=== PATIENT | female | born 1955 | race Caucasian/White ===

== ENCOUNTER 2020-09-09 17:48 | Inpatient (IN) | payer MEDICARE, BC ==
[2020-09-09 18:20] LABS: #Basophils 0.1 thou/uL (0.0-0.2); #Eosinphils 0.1 thou/uL (0.0-0.7); #Lymphocytes 1.7 thou/uL (1.20-3.40); #Monocytes 0.5 thou/uL (0.11-0.59); #Neutrophils 3.6 thou/uL (1.40-6.50); %Eosinophils 2.2 % (0.0-10.0); %Monocytes 8.3 % (0.0-10.0); %Neutrophils 60.6 % (42.0-75.0); Hemoglobin 14.3 g/dL (12.0-16.0); Mean Corpuscular HGB CONC 33.7 g/dL (32.0-36.0); Mean Corpuscular Hemoglobin 33.2 pg (27.0-31.0); Mean Corpuscular Volume 98.6 fL (78.0-98.0); Mean Platelet Volume 8.9 fL (7.4-10.4); Platelet Count 161 thou/uL (130-400); Red Blood Cell (RBC) Count 4.31 mill/uL (4.20-5.40); White Blood Cell (WBC) Count 5.9 thou/uL (4.8-10.8)
[2020-09-09 18:45] LABS: ALT (SGPT) 19 U/L (8-55); AST (SGOT) 30 U/L (5-34); Albumin 4.2 g/dL (3.4-4.8); Alkaline Phosphatase 53 U/L (40-110); Anion Gap 14 mmol/L (10-20); BUN (Urea Nitrogen) 18 mg/dL (9.8-20.1); Bilirubin, Total 0.5 mg/dL (0.2-1.2); Calc. Creatinine Clearance 0 mL/min (70-130); Calcium 9.7 mg/dL (7.8-10.44); Carbon Dioxide 26 mmol/L (23-31); Chloride 101 mmol/L (98-107); Globulin 3.2 g/dL (2.4-3.5); Glucose 112 mg/dL (80-115); Potassium 3.7 mmol/L (3.5-5.1); Protein, Total 7.4 g/dL (5.8-8.1); Sodium 137 mmol/L (136-145)
[2020-09-09] MEDS ORDERED: Aspirin Chewable 81 MG TAB ONE (19:19)
[2020-09-09] MEDS ORDERED: Nitroglycerin 2% Ointment 1 INCH/1 GM Packet ONE (19:19)
[2020-09-09 19:31] LABS: CK (CPK) 221 U/L (29-168); Lipase 32 U/L (8-78)
[2020-09-09] MEDS ORDERED: Senokot S 8.6-50 MG TAB PO PRN (20:15)
[2020-09-09] MEDS ORDERED: Ondansetron PF 4 MG/2 ML Vial IVP PRN (20:15)
[2020-09-09] MEDS ORDERED: Bisacodyl 5 MG TAB PO PRN (20:15)
[2020-09-09] MEDS ORDERED: Ondansetron ODT 4 MG TAB PO PRN (20:15)
[2020-09-09] MEDS ORDERED: Nitroglycerin 0.4 MG TAB (25 Tab Bottle) SL PRN (20:15)
[2020-09-09] MEDS ORDERED: hydrALAZINE 20 MG/ML VIAL SLOW IVP PRN (20:58)
[2020-09-09] MEDS ORDERED: Lisinopril 5 MG TAB PO SCH (21:00)
[2020-09-09] MEDS ORDERED: Calcium Carbonate 500 MG ChewTAB PO PRN (21:01)
[2020-09-09] MEDS: Lactated Ringer's 1,000 ML IV SCH (21:21)
[2020-09-09 21:32] LABS: Hemoglobin A1c 4.9 % (4.0-6.0)
[2020-09-09 21:38] LABS: Magnesium 1.9 mg/dL (1.6-2.6); Phosphorus 3.7 mg/dL (2.3-4.7)
[2020-09-09 21:43] LABS: Troponin I Less than 0.010 ng/mL (< 0.028)
[2020-09-10 01:28] LABS: Troponin I Less than 0.010 ng/mL (< 0.028)
[2020-09-10 02:15] LABS: SARS-CoV-2 PCR by NAA Not Detected (NotDetected)
[2020-09-10 07:29] LABS: #Basophils 0.1 thou/uL (0.0-0.2); #Eosinphils 0.1 thou/uL (0.0-0.7); #Lymphocytes 1.4 thou/uL (1.20-3.40); #Monocytes 0.5 thou/uL (0.11-0.59); #Neutrophils 2.3 thou/uL (1.40-6.50); %Basophils 1.6 % (0.0-1.0); %Lymphocytes 32.6 % (21.0-51.0); %Monocytes 11.2 % (0.0-10.0); %Neutrophils 51.7 % (42.0-75.0); Hemoglobin 13.2 g/dL (12.0-16.0); Mean Corpuscular HGB CONC 33.5 g/dL (32.0-36.0); Mean Corpuscular Hemoglobin 32.9 pg (27.0-31.0); Mean Corpuscular Volume 98.3 fL (78.0-98.0); Mean Platelet Volume 8.7 fL (7.4-10.4); Platelet Count 148 thou/uL (130-400); Red Blood Cell (RBC) Count 4.02 mill/uL (4.20-5.40); White Blood Cell (WBC) Count 4.4 thou/uL (4.8-10.8)
[2020-09-10 07:52] LABS: ALT (SGPT) 16 U/L (8-55); AST (SGOT) 26 U/L (5-34); Albumin 3.5 g/dL (3.4-4.8); Alkaline Phosphatase 44 U/L (40-110); Anion Gap 13 mmol/L (10-20); BUN (Urea Nitrogen) 13 mg/dL (9.8-20.1); Bilirubin, Total 0.4 mg/dL (0.2-1.2); Calc. Creatinine Clearance 0 mL/min (70-130); Carbon Dioxide 26 mmol/L (23-31); Cardiac Risk 2.8 (Less than 4.5); Chloride 107 mmol/L (98-107); Cholesterol 201 mg/dl (< 200 Desired); Globulin 2.5 g/dL (2.4-3.5); Glucose 87 mg/dL (80-115); HDL Cholesterol 72 mg/dL (>60 Neg Risk); LDL Cholesterol, Calculated 116 mg/dL; Potassium 3.5 mmol/L (3.5-5.1); Sodium 142 mmol/L (136-145); Triglycerides 65 mg/dL (Less than 150)
[2020-09-10] MEDS ORDERED: Amlodipine 5 MG TAB PO SCH (09:00)
[2020-09-10] MEDS ORDERED: Amlodipine 5 MG TAB ONE (09:25)
[2020-09-10] MEDS: Lactated Ringer's 1,000 ML IV SCH (09:29)
[2020-09-10 10:18] VITALS: BMI 28.8
[2020-09-10] MEDS ORDERED: ADENOSINE 60 MG/20 ML VIAL ONE (10:43)
[2020-09-10] MEDS: Acetaminophen 325 MG TAB PO PRN ×2 (10:48→21:21)
[2020-09-10] MEDS: Enoxaparin Sodium 40 MG/0.4 ML SYRINGE SC SCH (10:48)
[2020-09-10] MEDS ORDERED: Lisinopril 5 MG TAB PO SCH (21:00)
[2020-09-10] MEDS ORDERED: traZODone HCl 50 MG TAB PO SCH (21:00)
[2020-09-11 07:44] VITALS: BP 120/68; TEMP 98.1
[2020-09-11] MEDS: Enoxaparin Sodium 40 MG/0.4 ML SYRINGE SC SCH (08:18)
[2020-09-11] MEDS ORDERED: Amlodipine 10 MG TAB PO SCH (09:00)
[2020-09-11] MEDS ORDERED: Atorvastatin Calcium 40 MG TAB PO SCH ×2 (09:00→21:00)
== END 2020-09-11 11:34 | disposition home or self-care (01) | DRG 305 ==
LOC: ERS 17:48 → ERHOLD 20:15 → 2SE 09-10 10:15 → OBSVTOIN 09-11 09:34
PROVIDERS: ADMIT Family Medicine; ATTEND Family Medicine
DX: I16.0 Hypertensive urgency (principal); E78.5 Hyperlipidemia, unspecified; K21.9 Gastro-esophageal reflux disease without esophagitis; M19.90 Unspecified osteoarthritis, unspecified site; G47.00 Insomnia, unspecified; Z20.822 Contact with and (suspected) exposure to COVID-19; I10 Essential (primary) hypertension; Z98.1 Arthrodesis status; Z90.49 Acquired absence of other specified parts of digestive tract; Z90.710 Acquired absence of both cervix and uterus; Z82.3 Family history of stroke; Z82.49 Family history of ischemic heart disease and other diseases of the circulatory system; Z83.49 Family history of other endocrine, nutritional and metabolic diseases
CPT/HCPCS: 36415; 71045; 78452; 80053; 80061; 82550; 83036; 83690; 83735; 83880; 84100; 84443; 84484; 85025; 85379; 87635; 93005; 93017; 96372; 96374; A9500; G0378; J0153; J0360; J1650; U0003; U0005

== ENCOUNTER 2020-09-16 11:10 | Observation (INO) | payer MEDICARE, BC ==
[2020-09-16] MEDS ORDERED: Aspirin Chewable 81 MG TAB ONE (11:32)
[2020-09-16 11:41] LABS: #Eosinphils 0.1 thou/uL (0.0-0.7); #Lymphocytes 1.8 thou/uL (1.20-3.40); #Monocytes 0.5 thou/uL (0.11-0.59); %Basophils 0.9 % (0.0-1.0); %Eosinophils 2.2 % (0.0-10.0); %Lymphocytes 32.3 % (21.0-51.0); %Monocytes 9.8 % (0.0-10.0); %Neutrophils 54.8 % (42.0-75.0); Hemoglobin 16.1 g/dL (12.0-16.0); Mean Corpuscular HGB CONC 33.1 g/dL (32.0-36.0); Mean Corpuscular Hemoglobin 32.6 pg (27.0-31.0); Mean Corpuscular Volume 98.6 fL (78.0-98.0); Mean Platelet Volume 8.9 fL (7.4-10.4); Platelet Count 184 thou/uL (130-400); RBC Distribution Width 10.9 % (11.5-14.5); Red Blood Cell (RBC) Count 4.92 mill/uL (4.20-5.40); White Blood Cell (WBC) Count 5.5 thou/uL (4.8-10.8)
[2020-09-16 11:54] LABS: ALT (SGPT) 24 U/L (8-55); AST (SGOT) 32 U/L (5-34); Albumin 4.7 g/dL (3.4-4.8); Alkaline Phosphatase 63 U/L (40-110); Anion Gap 14 mmol/L (10-20); BUN (Urea Nitrogen) 15 mg/dL (9.8-20.1); Bilirubin, Total 0.7 mg/dL (0.2-1.2); Calc. Creatinine Clearance 0 mL/min (70-130); Calcium 10.1 mg/dL (7.8-10.44); Carbon Dioxide 27 mmol/L (23-31); Chloride 99 mmol/L (98-107); Globulin 3.6 g/dL (2.4-3.5); Glucose 90 mg/dL (80-115); Lipase 39 U/L (8-78); Potassium 4.2 mmol/L (3.5-5.1); Protein, Total 8.3 g/dL (5.8-8.1); Sodium 136 mmol/L (136-145)
[2020-09-16] MEDS ORDERED: Nitroglycerin 0.4 MG TAB 1 EACH ONE (13:27)
[2020-09-16 14:55] LABS: Troponin I Less than 0.010 ng/mL (< 0.028)
== END 2020-09-16 16:47 | disposition home or self-care (01) ==
LOC: ERS 11:10 → ERHOLD 14:00
PROVIDERS: ADMIT Family Medicine; ATTEND Family Medicine
DX: R07.9 Chest pain, unspecified (principal); I10 Essential (primary) hypertension; M19.90 Unspecified osteoarthritis, unspecified site; M54.10 Radiculopathy, site unspecified; I45.10 Unspecified right bundle-branch block; Z87.891 Personal history of nicotine dependence; Z79.899 Other long term (current) drug therapy; Z88.1 Allergy status to other antibiotic agents
CPT/HCPCS: 36415; 71045; 80053; 83690; 84484; 85025; 93005